=== PATIENT | female | born 1965 | race Caucasian/White ===

== ENCOUNTER 2017-03-18 21:37 | Emergency (ER) | payer OTHER ==
[~2017-03-18] VITALS: Ht 165.1 cm; Wt 62.7 kg
[2017-03-19] MEDS ORDERED: FLEXERIL10 MG PO (02:28)
[2017-03-19 02:47] VITALS: BP 120/76
== END 2017-03-19 02:50 | disposition left against medical advice (07) ==
LOC: EME 21:37
DX: S16.1XXA Strain of muscle, fascia and tendon at neck level, initial encounter (principal); R51 Headache; V28.0XXA Motorcycle driver injured in noncollision transport accident in nontraffic accident, initial encounter; F17.200 Nicotine dependence, unspecified, uncomplicated
CPT/HCPCS: 70450; 72125; 99281; 99284